=== PATIENT | female | born 1995 | race Caucasian/White ===

== ENCOUNTER → 2020-04-23 | Outpatient (REF) | payer OTHER ==
[2020-04-23 17:46] LABS: HEMOGLOBIN 14.1 g/dl (12.0-15.5); MEAN CORPUSCULAR HEMOGLOBIN 29.4 pg (27.0-33.0); MEAN CORPUSCULAR VOLUME 91.7 fl (80.0-96.0); PLATELET COUNT, AUTOMATED 330 10^3/uL (150-450); WHITE BLOOD COUNT 9.5 10^3/uL (4.0-10.0)
[2020-04-23 19:06] LABS: HEPATITIS C VIRUS ABY INDEX 0.1 INDEX (<0.8); HIV 1&2 SCREEN CENTAUR NEGATIVE (NEGATIVE)
== END ==
LOC: M PLALAB 13:52
PROVIDERS: ATTEND Advanced Practice Midwife
DX: Z34.01 Encounter for supervision of normal first pregnancy, first trimester (principal)

== ENCOUNTER → 2020-05-21 | Outpatient (CLI) | payer OTHER | LOC: M WHC 13:28 | PROVIDERS: ATTEND Obstetrics & Gynecology | DX: Z3A.13 13 weeks gestation of pregnancy (principal) ==

== ENCOUNTER → 2020-06-18 | Outpatient (CLI) | payer OTHER ==
--- NOTE | 2020-06-18 18:08 | REP ---
INDICATION: ANATOMY COMPARISON: None. TECHNIQUE: Transabdominal obstetrical ultrasound with color Doppler evaluation. FINDINGS: Examination demonstrates a single live intrauterine in variable presentation. motion is identified by technologist. Placenta is noted posterior/fundal and grade 1 without evidence for placenta previa or abruption. Amniotic fluid volume is normal. Cervix measures 3.4 cm in length and appears closed.. Gestational age by LMP 17 weeks 6 days with NINI 11/20/2020. Gestational age by current measurements 17 weeks 2 days with NINI 11/24/2020. FHR equals 144 beats per minute. BPD: 3.7 cm 17 weeks 2 days HC: 14.0 cm 17 weeks 2 days AC: 11.3 cm 17 weeks 1 day FL: 2.4 cm 17 weeks 3 days HL: 2.4 cm 17 weeks 4 days HC/AC: 1.23 Estimated weight 187 grams (15thpercentile). Anatomical assessment demonstrates normal structures including cranium, choroid plexus, cavum, cerebellum/posterior fossa, facial features, lungs, diaphragm, stomach, cord insertion/three-vessel cord, kidneys/bladder, spine, and extremities. IMPRESSION: 1. Single live intrauterine in variable presentation demonstrating appropriate interval growth. 2. Posterior placenta with small fundal succenturiate lobe 3. Limited evaluation of the heart and cardiac ventricular outflow tracts. Remainder of the anatomical assessment is complete and normal. <Electronically signed by Deon Lopez > 06/18/20 [id number]
== END ==
LOC: M WHC 12:25
PROVIDERS: ATTEND Obstetrics & Gynecology
DX: Z34.92 Encounter for supervision of normal pregnancy, unspecified, second trimester (principal); Z3A.17 17 weeks gestation of pregnancy

== ENCOUNTER → 2020-07-16 | Outpatient (CLI) | payer OTHER | LOC: M WHC 08:14 | PROVIDERS: ATTEND Obstetrics & Gynecology | DX: Z34.80 Encounter for supervision of other normal pregnancy, unspecified trimester (principal); Z3A.21 21 weeks gestation of pregnancy; Z53.9 Procedure and treatment not carried out, unspecified reason ==

== ENCOUNTER → 2020-07-30 | Outpatient (CLI) | payer OTHER ==
--- NOTE | 2020-07-30 18:09 | REP ---
INDICATION: F/U ANATOMY. COMPARISON: Comparison study June 18, 2020.. TECHNIQUE: Transabdominal obstetric sonography. FINDINGS: Scanning through the gravid uterus demonstrates a viable single intrauterine gestation in cephalic lie. motion is observed and heart rate is recorded at 146 beats per minute. A posterior fundal placenta is seen, grade 1, without evidence of placenta previa. There is a 2nd portion of the placenta which is smaller and located anteriorly. No previa. Closed cervical length is measured at 3.1 cm transabdominally. No extrauterine abnormality is observed. Amniotic fluid is subjectively normal. Four-chamber heart and right ventricular outflow tract views were visualized today and are felt to be normal.. Biometry chart: BPD 5.5 cm, 22 weeks 5 days Head circumference 20.2 cm, 22 weeks 2 days Abdominal circumference 19.8 cm, 24 weeks 3 days Femur length 4.5 cm, 24 weeks 6 days Humeral length 4.0 cm, 24 weeks 1 day HC AC ratio 1.02 open (1.03-1.22) Cephalic index normal 0.76 Estimated weight 682 g, 1 lb 8 oz, 63rd percentile for 23 weeks 6 days IMPRESSION: Viable single intrauterine gestation at 23 weeks 5 days by today's composite sonographic criteria. NINI by today's sonography November 21, 2020. No complication identified. Expected gestational age estimate based on a known NINI of November 20, 2020 is 23 weeks 6 days. Appropriate interval growth. In conjunction with the prior study, anatomic survey is felt to be complete. <Electronically signed by Francis Valenzuela > 07/30/20 [id number]
== END ==
LOC: M WHC 12:23
PROVIDERS: ATTEND Obstetrics & Gynecology
DX: Z36.2 Encounter for other antenatal screening follow-up (principal); Z3A.21 21 weeks gestation of pregnancy

== ENCOUNTER → 2020-08-12 | Outpatient (REF) | payer OTHER | LOC: M PLALAB 18:38 | PROVIDERS: ATTEND Obstetrics & Gynecology | DX: Z34.92 Encounter for supervision of normal pregnancy, unspecified, second trimester (principal); Z3A.26 26 weeks gestation of pregnancy; Z53.9 Procedure and treatment not carried out, unspecified reason ==

== ENCOUNTER → 2020-08-22 | Outpatient (REF) | payer OTHER ==
[2020-08-22 11:46] LABS: HEMOGLOBIN 12.2 g/dl (12.0-15.5); MEAN CORPUSCULAR HEMOGLOBIN 30.3 pg (27.0-33.0); MEAN CORPUSCULAR HGB CONC 32.1 g/dl (32.0-36.5); MEAN CORPUSCULAR VOLUME 94.5 fl (80.0-96.0); PLATELET COUNT, AUTOMATED 264 10^3/uL (150-450); RED BLOOD COUNT 4.02 10^6/uL (4.00-5.40); WHITE BLOOD COUNT 9.3 10^3/uL (4.0-10.0)
== END ==
LOC: M PLALAB 08:48
PROVIDERS: ATTEND Obstetrics & Gynecology
DX: Z34.92 Encounter for supervision of normal pregnancy, unspecified, second trimester (principal); Z3A.26 26 weeks gestation of pregnancy

== ENCOUNTER → 2020-10-23 | Outpatient (REF) | payer OTHER | LOC: M SFHCWAGY 16:50 | PROVIDERS: ATTEND Advanced Practice Midwife | DX: Z34.93 Encounter for supervision of normal pregnancy, unspecified, third trimester (principal); Z3A.36 36 weeks gestation of pregnancy ==

== ENCOUNTER → 2020-11-13 | Outpatient (CLI) | payer OTHER | LOC: M LABSMTC 11:32 | PROVIDERS: ATTEND Specialist | DX: Z20.822 Contact with and (suspected) exposure to COVID-19 (principal) ==

== ENCOUNTER → 2020-11-19 | Outpatient (CLI) | payer OTHER ==
--- NOTE | 2020-11-20 00:07 | REP ---
INDICATION: PREG 39 WKS MALFORMATION OF PLACENTA UNSPEC COMPARISON: 07/30/2020 TECHNIQUE: Transabdominal obstetrical ultrasound with color Doppler evaluation. FINDINGS: Examination demonstrates a single live intrauterine in cephalic presentation. motion is identified by technologist. Placenta is noted to have anterior and posterior lobes and grade 3 without evidence for placenta previa or abruption. Amniotic fluid volume is normal. Cervix measures 3.9 cm in length and appears closed. No evidence for placenta previa or vasa previa.. Selected gestational age: 39 weeks 5 days with NINI 11/21/2020. FHR equals 131 beats per minute. NICOLETTE: 13.9 cm Umbilical artery SD ratio: 2.03 (1.48-3.24) IMPRESSION: Single live intrauterine in cephalic presentation. Anterior and posterior placental lobes without evidence for placenta previa or vasa previa. <Electronically signed by Deon Lopez > 11/20/20 0004
== END ==
LOC: M RAD 14:52
PROVIDERS: ATTEND Advanced Practice Midwife
DX: O43.103 Malformation of placenta, unspecified, third trimester (principal)

== ENCOUNTER → 2020-11-20 | Outpatient (CLI) | payer OTHER | LOC: M LABSMTC 10:55 | PROVIDERS: ATTEND Specialist | DX: Z20.822 Contact with and (suspected) exposure to COVID-19 (principal) ==

== ENCOUNTER 2020-11-24 22:49 | Inpatient (IN) | payer OTHER ==
[~2020-11-24] VITALS: Ht 165.1 cm; Wt 104.2 kg
[2020-11-24 23:07] VITALS: BP 131/74
[2020-11-24] MEDS ORDERED: PENICILLIN G POTASSIUM IV 5 MU in D5W MINI-BAG PLUS 100 ML IV STA ×2 (23:18→23:24)
[2020-11-24] MEDS ORDERED: LACTATED RINGER'S 1000 ML IV STA (23:18)
[2020-11-24] MEDS ORDERED: CARBOPROST TROMETHAMINE 250 MCG/ML AMP IM PRN (23:20)
[2020-11-24] MEDS ORDERED: METHYLERGONOVINE MALEATE 0.2 MG/ML VIAL (J2210) IM PRN (23:20)
[2020-11-24] MEDS ORDERED: OXYTOCIN DRIP 30 UNITS in IV 1 EA IV PRN (23:20)
[2020-11-24] MEDS ORDERED: LR 1,000 ML IV SCH (23:20)
[2020-11-24] MEDS ORDERED: TRANEXAMIC ACID INJection 1,000 MG in NS 100 ML IV PRN (23:20)
[2020-11-24] MEDS ORDERED: LIDOCAINE 1% MDV 20ML VIAL INFIL PRN (23:20)
[2020-11-25] VITALS (22 sets, daily range): BP systolic 106–150; BP diastolic 55–89
[2020-11-25 00:07] LABS: HEMATOCRIT 38.8 % (36.0-47.0); HEMOGLOBIN 12.8 g/dl (12.0-15.5); MEAN CORPUSCULAR HEMOGLOBIN 27.6 pg (27.0-33.0); MEAN CORPUSCULAR VOLUME 83.8 fl (80.0-96.0); PLATELET COUNT, AUTOMATED 328 10^3/uL (150-450); RED BLOOD COUNT 4.63 10^6/uL (4.00-5.40)
[2020-11-25] MEDS ORDERED: FENTANYL 2MCG/ML ROPIVACAINE 0.2% IN 0.9% NACL 100ML IVBAG As Ordered ONE (00:33)
[2020-11-25] MEDS ORDERED: ONDANSETRON 4MG/2ML VIAL IV PRN (01:20)
[2020-11-25] MEDS ORDERED: REFRIGERATOR IV KEYS XX PRN (01:20)
[2020-11-25] MEDS ORDERED: EPIDURAL/PCA KEYS XX PRN (01:20)
[2020-11-25] MEDS ORDERED: LACTATED RINGER'S 1000 ML IV PRN (01:20)
[2020-11-25] MEDS ORDERED: FENTANYL/ROPIVACAINE/NACL BAG 100 ML EPIDURAL SCH (01:20)
[2020-11-25] MEDS ORDERED: EPIDURAL COMMENT XX SCH (01:20)
[2020-11-25] MEDS ORDERED: ePHEDrine SULFATE 25 MG/5 ML(5MG/ML) SYRINGE IV PRN (01:20)
[2020-11-25] MEDS ORDERED: NALOXONE INJ 0.4MG/1ML VIAL (J2310 PER 1MG) IV PRN (01:20)
[2020-11-25] MEDS ORDERED: diphenhydrAMINE 50MG/ML VIAL (J1200) IV PRN (01:20)
[2020-11-25] MEDS ORDERED: OXYTOCIN DRIP 30 UNITS in IV 1 EA IV SCH (02:45)
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
[2020-11-25] MEDS ORDERED: PENICILLIN G POTASSIUM IV 2.5 MU in IV 1 EA IV SCH (06:15)
[2020-11-25] MEDS ORDERED: ANUSOL HC CREAM 30GM TOP PRN (07:30)
[2020-11-25] MEDS ORDERED: MEASLES,MUMPS,RUBELLA VACCINE INJ (MMR-II) (90707) SC SCH (07:30)
[2020-11-25] MEDS ORDERED: ACETAMINOPHEN TAB 650MG DOSE (2X325MG) PO PRN (07:30)
[2020-11-25] MEDS ORDERED: METHYLERGONOVINE MALEATE 0.2 MG TAB PO PRN (07:30)
[2020-11-25] MEDS ORDERED: RHOGAM 300 MCG (1500 IU) INJ (J2790) IM SCH (07:30)
[2020-11-25] MEDS ORDERED: IBUPROFEN 800 MG TAB PO PRN (07:30)
[2020-11-25] MEDS ORDERED: ACETAMINOPHEN 500 MG TAB PO PRN (07:30)
[2020-11-25] MEDS ORDERED: DIBUCAINE 1% OINTMENT 30GM TOP PRN (07:30)
[2020-11-25] MEDS ORDERED: IBUPROFEN 600MG TAB PO PRN (07:30)
--- NOTE | 2020-11-25 08:11 | DNPDOC ---
[facility] Delivery Note Delivery Note DATE OF DELIVERY: 11/25/20 at 0534 PREDELIVERY DIAGNOSIS: 40-4/7 weeks' gestation and labor. POST DELIVERY DIAGNOSIS: Delivered. PROCEDURE: Spontaneous vaginal delivery. [place] PAINTER: Deric Quiroz CNM, HERMAN ANESTHESIA: epidural. ESTIMATED BLOOD LOSS: 400 mL. FINDINGS: 8 pounds 3 oz; 3700 grams. female , Score 9/9 DELIVERY SUMMARY: Chantale is a 25-year-old female who is now a who presented to L&D in active labor. She requested an epidural for pain management. Chantale progressed to fully dilated at 0440. She pushed to a living female in the OA position with appropriate restitution. The anterior shoulder delivered with ease and the corpus immediately followed. The baby was placed [id number] active and crying. The cord was cut after pulsation ceased and cut by the FOB. A 3-vessel cord was noted. The placenta delivered spontaneously and intact at 0544. Uterine hemostasis was achieved via rapid infusion of IV Pitocin and poonam l massage. The vagina, cervix, and perineum was inspected and found to have a first degree perineal laceration that was repaired with a 3.[address]- 1. Mom plans to breastfeed. Mom and baby are in stable condition. All counts of instruments and sponges are correct. DERIC QUIROZ CNM Nov 25, 2020 08:11
[2020-11-25] MEDS: PRENATAL VITAMINS CHEWABLE TABLET PO SCH (08:40)
[2020-11-25] MEDS: DOCUSATE SODIUM 100MG CAPSULE PO PRN (19:53)
[2020-11-26 06:00] VITALS: BP 119/68
[2020-11-26] MEDS: PRENATAL VITAMINS CHEWABLE TABLET PO SCH (08:27)
[2020-11-26 18:00] VITALS: BP 126/81
[2020-11-26] MEDS: DOCUSATE SODIUM 100MG CAPSULE PO PRN (20:31)
[2020-11-27 06:21] VITALS: BP 120/72
[2020-11-27] MEDS: PRENATAL VITAMINS CHEWABLE TABLET PO SCH (08:38)
== END 2020-11-27 13:48 | disposition home or self-care (01) | DRG 807 ==
LOC: M LDO 22:49 → M LDI 23:30 → M OBS 11-25 08:29
PROVIDERS: ADMIT Advanced Practice Midwife; ATTEND Advanced Practice Midwife
PROC: 10E0XZZ Delivery of Products of Conception, External Approach (ICD-10-PCS; principal; 2020-11-25)
PROC: 0HQ9XZZ Repair Perineum Skin, External Approach (ICD-10-PCS; 2020-11-25)
DX: O48.0 Post-term pregnancy (principal); Z37.0 Single live birth; Z3A.40 40 weeks gestation of pregnancy; O43.193 Other malformation of placenta, third trimester; O70.0 First degree perineal laceration during delivery

== ENCOUNTER → 2023-04-13 | Outpatient (REF) | payer BC | LOC: M PLALAB 13:49 | PROVIDERS: ATTEND Advanced Practice Midwife | DX: Z12.4 Encounter for screening for malignant neoplasm of cervix (principal) ==

== ENCOUNTER → 2023-10-04 | Outpatient (CLI) | payer BC ==
[2023-10-04 13:19] LABS: HEMATOCRIT 40.3 % (36.0-47.0); HEMOGLOBIN 13.4 g/dl (12.0-15.5); MEAN CORPUSCULAR HEMOGLOBIN 30.2 pg (27.0-33.0); MEAN CORPUSCULAR HGB CONC 33.3 g/dl (32.0-36.5); PLATELET COUNT, AUTOMATED 305 10^3/uL (150-450); RED BLOOD COUNT 4.43 10^6/uL (4.00-5.40)
[2023-10-04 14:18] LABS: HIV 1&2 SCREEN NEGATIVE (NEGATIVE)
[2023-10-04 14:26] LABS: HEPATITIS C VIRUS ABY INDEX < 0.02 INDEX (<0.8)
[2023-10-04 14:32] LABS: GC DNA AMPLIFICATION NEGATIVE (NEGATIVE)
== END ==
LOC: M PLALAB 10:24
PROVIDERS: ATTEND Advanced Practice Midwife
DX: Z34.91 Encounter for supervision of normal pregnancy, unspecified, first trimester (principal)

== ENCOUNTER 2023-11-15 18:43 | Emergency (ER) | payer OTHER, BC ==
[~2023-11-15] VITALS: Ht 165.1 cm; Wt 93.4 kg
[2023-11-15 19:58] LABS: BASO % 0.2 % (0.0-1.0); EOS # 0.1 10^3/uL (0.0-0.5); EOS % 0.6 % (0.0-3.0); HEMATOCRIT 38.4 % (36.0-47.0); HEMOGLOBIN 12.9 g/dl (12.0-15.5); LYMPH # 1.9 10^3/uL (1.5-5.0); LYMPH % 22.7 % (24.0-44.0); MEAN CORPUSCULAR HEMOGLOBIN 30.5 pg (27.0-33.0); MEAN CORPUSCULAR HGB CONC 33.6 g/dl (32.0-36.5); MEAN CORPUSCULAR VOLUME 90.8 fl (80.0-96.0); MONO # 0.7 10^3/uL (0.0-0.8); MONO % 8.7 % (2.0-8.0); NEUTROPHILS # 5.6 10^3/uL (1.5-8.5); NEUTROPHILS % 67.4 % (36.0-66.0); PLATELET COUNT, AUTOMATED 262 10^3/uL (150-450); RED BLOOD COUNT 4.23 10^6/uL (4.00-5.40); WHITE BLOOD COUNT 8.3 10^3/uL (4.0-10.0)
[2023-11-15 20:22] LABS: BLOOD UREA NITROGEN 9 MG/DL (9-23); CALCIUM LEVEL 8.9 MG/DL (8.5-10.1); CARBON DIOXIDE LEVEL 25 MMOL/L (20-31); CHLORIDE LEVEL 110 MMOL/L (98-107); CREATININE FOR GFR 0.53 MG/DL (0.55-1.30); GLOMERULAR FILTRATION RATE > 60.0 (>60); GLUCOSE, FASTING 90 MG/DL (60-100); POTASSIUM SERUM 4.1 MMOL/L (3.5-5.1); SODIUM LEVEL 141 MMOL/L (136-145)
[2023-11-16 00:07] VITALS: BP 109/59; TEMP 98.7; O2SAT 100
== END 2023-11-16 00:08 | disposition home or self-care (01) ==
LOC: M ED 18:43
DX: Z04.1 Encounter for examination and observation following transport accident (principal); Z3A.16 16 weeks gestation of pregnancy

== ENCOUNTER → 2023-12-02 | Outpatient (CLI) | payer BC | LOC: M WHC 13:05 | PROVIDERS: ATTEND Obstetrics & Gynecology | DX: Z34.82 Encounter for supervision of other normal pregnancy, second trimester (principal); Z3A.18 18 weeks gestation of pregnancy ==

== ENCOUNTER → 2023-12-02 | Outpatient (REF) | payer BC | LOC: M PLALAB 15:32 | PROVIDERS: ATTEND Advanced Practice Midwife | DX: O99.212 Obesity complicating pregnancy, second trimester (principal); Z53.8 Procedure and treatment not carried out for other reasons ==

== ENCOUNTER → 2024-02-16 | Outpatient (CLI) | payer BC | LOC: M WHC 14:29 | PROVIDERS: ATTEND Nurse Practitioner Women's Health | DX: Z36.2 Encounter for other antenatal screening follow-up (principal); Z3A.25 25 weeks gestation of pregnancy ==

== ENCOUNTER → 2024-02-20 | Outpatient (CLI) | payer BC ==
[2024-02-20 13:47] LABS: HEMATOCRIT 36.8 % (36.0-47.0); HEMOGLOBIN 11.9 g/dl (12.0-15.5); MEAN CORPUSCULAR HGB CONC 32.3 g/dl (32.0-36.5); MEAN CORPUSCULAR VOLUME 89.5 fl (80.0-96.0); PLATELET COUNT, AUTOMATED 254 10^3/uL (150-450); RED BLOOD COUNT 4.11 10^6/uL (4.00-5.40); WHITE BLOOD COUNT 9.6 10^3/uL (4.0-10.0)
[2024-02-20 14:19] LABS: GLUCOSE CHALLENGE TEST 1 HOUR 79 MG/DL (LESS THAN 140)
[2024-02-20 14:54] LABS: HIV 1&2 SCREEN NEGATIVE (NEGATIVE)
[2024-02-20 15:02] LABS: HEPATITIS C VIRUS ABY INDEX < 0.02 INDEX (<0.8)
[2024-02-20 15:44] LABS: GC DNA AMPLIFICATION NEGATIVE (NEGATIVE)
== END ==
LOC: M PLALAB 08:23
PROVIDERS: ATTEND Nurse Practitioner Women's Health
DX: Z34.80 Encounter for supervision of other normal pregnancy, unspecified trimester (principal)

== ENCOUNTER → 2024-02-29 | Outpatient (REF) | payer BC | LOC: M PLALAB 15:47 | PROVIDERS: ATTEND Obstetrics & Gynecology | DX: Z34.93 Encounter for supervision of normal pregnancy, unspecified, third trimester (principal) ==

== ENCOUNTER → 2024-03-01 | Outpatient (CLI) | payer BC | LOC: M RAD 15:17 | PROVIDERS: ATTEND Obstetrics & Gynecology | DX: Z34.93 Encounter for supervision of normal pregnancy, unspecified, third trimester (principal); Z3A.31 31 weeks gestation of pregnancy ==

== ENCOUNTER → 2024-03-09 | Outpatient (CLI) | payer BC | LOC: M PLALAB 15:57 | PROVIDERS: ATTEND Obstetrics & Gynecology | DX: Z34.80 Encounter for supervision of other normal pregnancy, unspecified trimester (principal) ==

== ENCOUNTER → 2024-03-19 | Outpatient (CLI) | payer BC | LOC: M PLALAB 07:55 | PROVIDERS: ATTEND Obstetrics & Gynecology | DX: O99.213 Obesity complicating pregnancy, third trimester (principal); Z3A.00 Weeks of gestation of pregnancy not specified; E66.9 Obesity, unspecified ==

== ENCOUNTER → 2024-03-30 | Outpatient (REF) | payer BC | LOC: M PLALAB 15:00 | PROVIDERS: ATTEND Obstetrics & Gynecology | DX: Z36.85 Encounter for antenatal screening for Streptococcus B (principal); Z3A.35 35 weeks gestation of pregnancy ==

== ENCOUNTER 2024-04-28 07:47 | Inpatient (IN) | payer BC ==
[~2024-04-28] VITALS: Ht 165.1 cm; Wt 102.9 kg
[2024-04-28] VITALS (28 sets, daily range): BP systolic 108–188; BP diastolic 56–96; O2SAT 97–98
[2024-04-28] MEDS ORDERED: ACET-897 PO (08:11)
[2024-04-28] MEDS ORDERED: PRENTAB9 PO (08:11)
[2024-04-28] MEDS ORDERED: TUMS500C PO (08:11)
[2024-04-28] MEDS ORDERED: COLA100C5 PO (08:11)
[2024-04-28] MEDS ORDERED: LIDOCAINE 1% MDV 20ML VIAL INFIL PRN (08:15)
[2024-04-28] MEDS ORDERED: HOME MED LIST COMPLETE! XX SCH (08:15)
[2024-04-28] MEDS ORDERED: METHYLERGONOVINE MALEATE 0.2MG/ML 1ML VIAL IM PRN (08:15)
[2024-04-28] MEDS ORDERED: TRANEXAMIC ACID INJection 1,000 MG in NS 100 ML IV PRN (08:15)
[2024-04-28 08:58] LABS: HEMATOCRIT 38.8 % (36.0-47.0); HEMOGLOBIN 12.5 g/dl (12.0-15.5); MEAN CORPUSCULAR HGB CONC 32.2 g/dl (32.0-36.5); MEAN CORPUSCULAR VOLUME 83.8 fl (80.0-96.0); PLATELET COUNT, AUTOMATED 273 10^3/uL (150-450); RED BLOOD COUNT 4.63 10^6/uL (4.00-5.40); WHITE BLOOD COUNT 9.1 10^3/uL (4.0-10.0)
[2024-04-28] MEDS: miSOPROStol 50MCG 1/2 TABLET PO SCH (09:14)
[2024-04-28 09:44] LABS: HEPATITIS C VIRUS ABY INDEX 0.02 INDEX (<0.8)
[2024-04-28] MEDS: CALCIUM CARBONATE 500 MG CHEW U/D PO PRN (12:13)
[2024-04-28] MEDS ORDERED: NALOXONE INJ 0.4MG/1ML VIAL IV PRN (20:40)
[2024-04-28] MEDS ORDERED: LR 500 ML IV PRN (20:40)
[2024-04-28] MEDS ORDERED: diphenhydrAMINE 50MG/ML VIAL IV PRN (20:40)
[2024-04-28] MEDS ORDERED: ePHEDrine SULFATE 25 MG/5 ML(5MG/ML) SYRINGE IVP PRN (20:40)
[2024-04-28] MEDS ORDERED: EPIDURAL/PCA KEYS XX PRN (20:40)
[2024-04-28] MEDS ORDERED: ONDANSETRON 4MG 2ML VIAL IV PRN (20:40)
[2024-04-28] MEDS: FENTANYL/ROPIVACAINE/NACL BAG 100 ML EPIDURAL SCH (21:07)
[2024-04-28] MEDS: OXYTOCIN DRIP 30 UNITS in IV 1 EA IV SCH ×2 (21:24→22:00)
[2024-04-28] MEDS ORDERED: ANUSOL HC CREAM 30GM TOP PRN (22:00)
[2024-04-28] MEDS ORDERED: METHYLERGONOVINE MALEATE 0.2 MG TAB PO PRN (22:00)
[2024-04-28] MEDS ORDERED: RHOGAM 300MCG (1500IU) INJ IM SCH (22:00)
[2024-04-28] MEDS ORDERED: DIBUCAINE 1% OINTMENT 30GM TOP PRN (22:00)
[2024-04-28] MEDS ORDERED: MOM 30ML SUSPENSION UDC PO PRN (22:00)
[2024-04-28] MEDS ORDERED: CALCIUM CARBONATE 500 MG CHEW U/D PO PRN (22:00)
[2024-04-28] MEDS ORDERED: ACETAMINOPHEN 325 MG TAB PO PRN (22:00)
[2024-04-28] MEDS ORDERED: IBUPROFEN 600MG TAB PO PRN (22:00)
[2024-04-28] MEDS: AMPICILLIN SOD/SULBACTAM SOD 3 GM in SODIUM CHLORIDE 0.9% 100ML ADD 100 ML IV ONE (22:08)
[2024-04-29 00:05] VITALS: BP 132/73; O2SAT 99
[2024-04-29 05:48] VITALS: BP 117/70; O2SAT 98
[2024-04-29] MEDS: PRENATAL VITAMINS CHEWABLE TABLET PO SCH (09:30)
[2024-04-29] MEDS: IBUPROFEN 800 MG TAB PO PRN (10:40)
[2024-04-29] MEDS: DOCUSATE SODIUM 100MG CAPSULE PO PRN (15:30)
[2024-04-29] MEDS: ACETAMINOPHEN 500 MG TAB PO PRN (15:30)
[2024-04-29 18:30] VITALS: BP 118/66; O2SAT 96
[2024-04-30 05:49] VITALS: BP 101/55; O2SAT 97
[2024-04-30] MEDS ORDERED: MEASLES,MUMPS,RUBELLA VACCINE INJ (MMR-II) SC.IMMUN ONE (09:00)
[2024-04-30 18:00] VITALS: BP 138/78; O2SAT 99
== END 2024-04-30 14:58 | disposition home or self-care (01) | DRG 541 ==
LOC: M LDI 07:47 → M OBS 04-29
PROVIDERS: ADMIT Obstetrics & Gynecology; ATTEND Obstetrics & Gynecology
PROC: 10E0XZZ Delivery of Products of Conception, External Approach (ICD-10-PCS; principal; 2024-04-28)
PROC: 3E033VJ Introduction of Other Hormone into Peripheral Vein, Percutaneous Approach (ICD-10-PCS; 2024-04-28)
PROC: 10D17Z9 Manual Extraction of Products of Conception, Retained, Via Natural or Artificial Opening (ICD-10-PCS; 2024-04-28)
DX: O73.0 Retained placenta without hemorrhage (principal); Z37.0 Single live birth; Z3A.39 39 weeks gestation of pregnancy